=== PATIENT | female | born 1960 | race American Indian/Alaskan Native ===

== ENCOUNTER 2017-06-27 12:30 | Emergency (ER) | payer SELFPAY ==
[2017-06-27 12:37] VITALS: BP 131/65; PULSE 73; TEMP 99; BMI 25.8
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
[2017-06-27] MEDS ORDERED: morphine CARPU-JECT 2 MG/1 ML DISP.SYRIN IVPUSH ONE (14:23)
== END 2017-06-27 14:48 | disposition home or self-care (01) ==
LOC: JERFT 12:30
DX: M25.562 Pain in left knee (principal); X50.1XXA Overexertion from prolonged static or awkward postures, initial encounter; V78.4XXA Person boarding or alighting from bus injured in noncollision transport accident, initial encounter; Y92.414 Local residential or business street as the place of occurrence of the external cause; Y93.89 Activity, other specified; Y99.8 Other external cause status
CPT/HCPCS: 73562-TC-RT; 99281-25